=== PATIENT | female | born 1980 | race Caucasian/White ===

== ENCOUNTER 2017-02-28 08:00 | Outpatient (CLI) | payer BC, OTHER | END 2017-02-28 08:01 | disposition home or self-care (01) | LOC: BICMAMMO 08:00 | PROVIDERS: ATTEND Family Medicine | DX: N64.52 Nipple discharge (principal) | CPT/HCPCS: G0279 ==

== ENCOUNTER 2019-12-31 09:16 | Outpatient (CLI) | payer BC ==
--- NOTE | 2019-12-31 09:41 | ULT ---
US Renal Bilateral STANDARD HISTORY: Renal failure COMPARISON: None. FINDINGS: The right kidney measures 9.2 cm in length and the left kidney measures 10.4 cm in length. No focal m ass or hydronephrosis is seen on either side. Cortical echogenicity and thickness is normal. No shadowing calculi are seen. The urinary bladder is normal with visualization of bilateral ureteral je ts. The bladder volume measures 332 cc. IMPRESSION: Normal exam.
== END 2019-12-31 09:17 | disposition home or self-care (01) ==
LOC: BICULT 09:16
PROVIDERS: ATTEND Internal Medicine Nephrology
DX: N17.9 Acute kidney failure, unspecified (principal)
CPT/HCPCS: 76770

== ENCOUNTER 2022-09-10 15:23 | Outpatient (CLI) | payer BC | END 2022-09-10 15:24 | disposition home or self-care (01) | LOC: SCSRAD 15:23 | PROVIDERS: ATTEND Nurse Practitioner Family | DX: S89.92XA Unspecified injury of left lower leg, initial encounter (principal); M25.462 Effusion, left knee ==